=== PATIENT | male | born 1950 | race Caucasian/White ===

== ENCOUNTER 2016-10-24 10:42 | Day surgery (SDC) | payer MEDICARE, BC ==
[2016-10-19 09:27] VITALS: BMI 28.0
--- NOTE | 2016-10-23 15:02 | P.GSHP ---
History of Present Illness H&P Date: 10/24/16 Chief Complaint: Personal history of colon cancer Patient is known to our service. 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 He is being scheduled today for follow-up colonoscopy. Last colonoscopy was in 2014 and that was normal at that time. Past Medical History Past Medical History: Coronary Artery Disease (CAD), Cancer, Hyperlipidemia, Hypertension Additional Past Medical History / Comment(s): HX OF COLON CANCER (JUL 2013), History of Any Multi-Drug Resistant Organisms: None Reported Past Surgical History: Appendectomy, Bowel Resection, Cholecystectomy, Heart Catheterization With Stent, Hernia Repair Additional Past Surgical History / Comment(s): INGUINAL HERNIA REPAIR , CYST ON BACK REMOVED, LAPAROSCOPIC SIGMOID RESECTION, HEART CATH WITH STENT Past Anesthesia/Blood Transfusion Reactions: No Reported Reaction Date of Last Stent Placement:: SEP 2013 Past Psychological History: No Psychological Hx Reported Smoking Status: Former smoker Past Alcohol Use History: Occasional Additional Past Alcohol Use History / Comment(s): STARTED SMOKING AT AGE 18 QUIT 1985 SMOKED 1 1/2 PPD Past Drug Use History: Marijuana - Past Family History Mother Family Medical History: No Reported History Medications and Allergies Home Medications Medication Instructions Recorded Confirmed Type Aspirin EC [Ecotrin] 162 mg PO DAILY 10/18/14 10/19/16 History Lisinopril [Zestril] 20 mg PO DAILY 10/18/14 10/19/16 History Metoprolol Succinate (ER) [Toprol 25 mg PO BID 10/18/14 10/19/16 History Xl] Multivitamins, Thera [Multivitamin] 1 each PO DAILY 10/18/14 10/19/16 History Pravastatin Sodium [Pravachol] 40 mg PO HS 10/18/14 10/19/16 History Allergies Allergy/AdvReac Type Severity Reaction Status Date / Time No Known Allergies Allergy Verified 10/19/16 09:08 Surgical - Exam Deferred Assessment and Plan (1) Colon cancer Narrative/Plan: Will proceed with colonoscopy tomorrow. Status: Acute
[~2016-10-24 10:42] MED LIST: LACTATED RINGERS 1,000 ML IV SCH; LIDOCAINE 1% 20 ML VIAL (10MG/ML) FOR IV START INTRADERMA PRN
[2016-10-24 12:21] VITALS: TEMP 98.7
--- NOTE | 2016-10-24 13:25 | P.HPADDEND ---
H&P Addendum H&P Addendum Date: 10/24/16 Physical exam: General: Well-developed, well-nourished HEENT: Normocephalic, sclerae nonicteric Abdomen: Nontender, nondistended Extremities: No edema Neuro: Alert and oriented No additional changes to the H&P.
[2016-10-24] MEDS ORDERED: PROPOFOL 10 MG/ML 20 ML VIAL IV ONE (13:29)
--- NOTE | 2016-10-24 13:46 | P.PCN ---
Date of Procedure: 10/24/16 Procedure(s) Performed: PREOPERATIVE DIAGNOSIS: History of colon cancer POSTOPERATIVE DIAGNOSIS: Normal exam post-sigmoid colectomy PROCEDURE: Colonoscopy ANESTHESIA: MAC SURGEON: Delfin Rome M.D. SPECIMENS: None ENDOSCOPIC PROCEDURE: The patient was placed on the endoscopy table in the left decubitus position. The Olympus colonoscope was inserted into the anus and passed under direct visualization to the base of the cecum. The appendiceal orifice was visualized. From that point the scope was slowly withdrawn inspecting all surfaces carefully. There were no neoplastic inflammatory or polypoid lesions throughout the cecum, ascending, transverse, descending, and rectum. The anastomosis was widely patent. There was no visible diverticulosis present. Digital rectal examination was normal. The patient was taken to the recovery room in stable condition per anesthesia guidelines. RECOMMENDATIONS: Increase fiber. Follow colonoscopy in 5 years.
[2016-10-24 14:01] VITALS: RESP 16
[2016-10-24 14:09] VITALS: BP 157/90; PULSE 63
== END 2016-10-24 14:20 | disposition home or self-care (01) ==
LOC: ORWHC2ENDO 10:42
PROVIDERS: ATTEND Surgery
DX: Z12.11 Encounter for screening for malignant neoplasm of colon (principal); Z98.0 Intestinal bypass and anastomosis status; Z85.038 Personal history of other malignant neoplasm of large intestine; I25.10 Atherosclerotic heart disease of native coronary artery without angina pectoris; I10 Essential (primary) hypertension; Z87.891 Personal history of nicotine dependence; E78.5 Hyperlipidemia, unspecified; Z79.82 Long term (current) use of aspirin; Z79.899 Other long term (current) drug therapy
CPT/HCPCS: J2704; G0105

== ENCOUNTER 2020-03-22 08:00 | Day surgery (SDC) | payer BC, MEDICARE ==
[2020-03-18 15:57] VITALS: BMI 29.6
[~2020-03-22 08:00] MED LIST changes: -LIDOCAINE 1% 20 ML VIAL (10MG/ML) FOR IV START INTRADERMA PRN
[2020-03-22] MEDS ORDERED: LIDOCAINE 1% (10MG/ML) FOR IV START INTRADERMA ONE (08:25)
[2020-03-22 08:31] VITALS: TEMP 96.8
[2020-03-22] MEDS ORDERED: PROPOFOL 10 MG/ML 20 ML VIAL IV ONE (08:46)
--- NOTE | 2020-03-22 08:52 | P.GSHP ---
History of Present Illness H&P Date: 03/22/20 Chief Complaint: Abdominal pain, change in bowel habits Patient here today for upper and lower endoscopy. Patient was having right upper quadrant pain which has improved. Patient is also having some constipation which is better lately. Patient with history of sigmoid colon cancer 2012. Last colonoscopy 3-4 years ago. Past Medical History Past Medical History: Coronary Artery Disease (CAD), Cancer, Hyperlipidemia, Hypertension Additional Past Medical History / Comment(s): HX OF COLON CANCER (JUL 2013-no radiation or chemo) History of Any Multi-Drug Resistant Organisms: None Reported Past Surgical History: Appendectomy, Bowel Resection, Cholecystectomy, Heart Catheterization With Stent, Hernia Repair Additional Past Surgical History / Comment(s): INGUINAL HERNIA REPAIR , CYST ON BACK REMOVED, LAPAROSCOPIC SIGMOID RESECTION, HEART CATH WITH STENT x2 Past Anesthesia/Blood Transfusion Reactions: No Reported Reaction Date of Last Stent Placement:: 2013 Past Psychological History: No Psychological Hx Reported Smoking Status: Former smoker Past Alcohol Use History: Occasional Additional Past Alcohol Use History / Comment(s): STARTED SMOKING AT AGE 18 QUIT 1985 SMOKED 1 1/2 PPD Past Drug Use History: Marijuana Additional Drug Use History / Comment(s): uses marijuana approx 2 times per week - Past Family History Mother Family Medical History: No Reported History Medications and Allergies Home Medications Medication Instructions Recorded Confirmed Type Aspirin EC [Ecotrin] 162 mg PO DAILY 10/18/14 03/18/20 History Lisinopril [Zestril] 30 mg PO QAM 10/18/14 03/18/20 History Metoprolol Succinate (ER) [Toprol 50 mg PO BID 10/18/14 03/18/20 History Xl] Multivitamins, Thera [Multivitamin] 1 each PO DAILY 10/18/14 03/18/20 History Atorvastatin [Lipitor] 40 mg PO HS 03/18/20 03/18/20 History Famotidine [Pepcid] 20 mg PO HS 03/18/20 03/18/20 History Magnesium 250 mg PO DAILY 03/18/20 03/18/20 History [place]klin-3 Fatty Acids/Fish Oil [Fish 1 each PO DAILY 03/18/20 03/18/20 History Oil 1,000 mg Softgel] amLODIPine [Norvasc] 10 mg PO HS 03/18/20 03/18/20 History Allergies Allergy/AdvReac Type Severity Reaction Status Date / Time No Known Allergies Allergy Verified 03/18/20 15:50 Surgical - Exam Vital Signs Temp Pulse Resp BP Pulse Ox 96.8 F L 70 20 167/73 99 03/22/20 08:27 03/22/20 08:27 03/22/20 08:27 03/22/20 08:27 03/22/20 08:27 Physical exam: General: Well-developed, well-nourished HEENT: Normocephalic, sclerae nonicteric Abdomen: Nontender, nondistended Extremities: No edema Neuro: Alert and oriented Assessment and Plan (1) Colon cancer Narrative/Plan: Will proceed with upper and lower endoscopy Current Visit: No Status: Acute Code(s): C18.9 - MALIGNANT NEOPLASM OF COLON, UNSPECIFIED SNOMED Code(s): 738013766
--- NOTE | 2020-03-22 09:11 | P.PCN ---
Date of Procedure: 03/22/20 Procedure(s) Performed: PREOPERATIVE DIAGNOSIS: Epigastric abdominal pain, change in bowel habits, personal history of colon cancer POSTOPERATIVE DIAGNOSIS: Gastritis, moderate hiatal hernia, normal colon PROCEDURE: 1. EGD with biopsy 2. Colonoscopy ANESTHESIA: MAC SURGEON: Delfin Rome M.D. SPECIMENS: Antrum ENDOSCOPIC PROCEDURE: The patient was on the endoscopy table in the left decubitus position. The Olympus gastroscope was inserted into the oropharynx and passed under direct visualization to the region of the third portion of the duodenum. From that point the scope was slowly withdrawn inspecting all surfaces carefully. There were no neoplastic inflammatory or polypoid lesions throughout the duodenum. The pylorus was widely patent. The stomach was carefully inspected. There was mild gastritis present. A biopsy of the antrum took place to rule out H. pylori. Retroflexion revealed a moderate sized hiatal hernia. The GE junction was 3-4 cm above the diaphragm. The esophagus was then carefully examined. There were no neoplastic inflammatory or polypoid lesions throughout the visualized esophagus. The patient was kept on the endoscopy table in the left decubitus position. The Olympus colonoscope was inserted into the anus and passed under direct visualization to the base of the cecum. The appendiceal orifice was visualized. From that point the scope was slowly withdrawn inspecting all surfaces carefully. There were no neoplastic inflammatory or polypoid lesions throughout the cecum, ascending, transverse, descending and rectum. There was no visible diverticulosis noted. Digital rectal examination was normal. The patient was taken to the recovery room in stable condition per anesthesia guidelines. RECOMMENDATIONS: Continue as needed antiacid therapy. Follow-up colonoscopy 5 years.
[2020-03-22 09:14] VITALS: RESP 16
[2020-03-22 09:26] VITALS: BP 134/82; PULSE 60
== END 2020-03-22 09:42 ==
LOC: ORWHC2ENDO 08:00
PROVIDERS: ATTEND Surgery
DX: K29.50 Unspecified chronic gastritis without bleeding (principal); K44.9 Diaphragmatic hernia without obstruction or gangrene; I25.10 Atherosclerotic heart disease of native coronary artery without angina pectoris; E78.5 Hyperlipidemia, unspecified; K59.00 Constipation, unspecified; I10 Essential (primary) hypertension; Z85.038 Personal history of other malignant neoplasm of large intestine; Z87.19 Personal history of other diseases of the digestive system; Z90.49 Acquired absence of other specified parts of digestive tract; Z95.5 Presence of coronary angioplasty implant and graft; Z87.891 Personal history of nicotine dependence; Z79.82 Long term (current) use of aspirin; Z79.899 Other long term (current) drug therapy
CPT/HCPCS: 88305; 43239; 45378; J2704

== ENCOUNTER 2024-12-22 09:58 | Day surgery (SDC) | payer MEDICARE ==
[~2024-12-22 09:58] MED LIST changes: -LACTATED RINGERS 1,000 ML IV SCH; +LIDOCAINE 1% (10MG/ML) FOR IV START INTRADERMA PRN
[2024-12-22] MEDS: IV FLUID CONTINUATION 1,000 ML IV ONE (10:40)
[2024-12-22] MEDS: LACTATED RINGERS 1,000 ML IV SCH (10:55)
[2024-12-22 10:59] VITALS: TEMP 97.3
[2024-12-22] MEDS ORDERED: PROPOFOL 10 MG/ML 20 ML VIAL IV ONE (12:04)
--- NOTE | 2024-12-22 12:07 | P.GSHP ---
History of Present Illness H&P Date: 12/22/24 Chief Complaint: Screening with history of cancer 74-year-old male here for colonoscopy. Last colonoscopy 5 years ago. No bowel complaints. Underwent sigmoid resection 2012. Past Medical History Past Medical History: Coronary Artery Disease (CAD), Cancer, GERD/Reflux, Hyperlipidemia, Hypertension, Sleep Apnea/CPAP/BIPAP Additional Past Medical History / Comment(s): HX OF COLON CANCER (JUL 2013-no radiation or chemo), hx skin ca, uses CPAP. History of Any Multi-Drug Resistant Organisms: None Reported Past Surgical History: Appendectomy, Bowel Resection, Cholecystectomy, Heart Catheterization With Stent, Hernia Repair Additional Past Surgical History / Comment(s): INGUINAL HERNIA REPAIR, CYST ON BACK REMOVED, LAPAROSCOPIC SIGMOID RESECTION, HEART CATH WITH STENT x2 Past Anesthesia/Blood Transfusion Reactions: No Reported Reaction Date of Last Stent Placement:: 2013 Smoking Status: Former smoker - Past Family History Mother Family Medical History: No Reported History Medications and Allergies Home Medications Medication Instructions Recorded Confirmed Type Aspirin EC [Ecotrin] 162 mg PO DAILY 10/18/14 12/22/24 History Metoprolol Succinate (ER) [Toprol 50 mg PO BID 10/18/14 12/22/24 History Xl] Multivitamins, Thera [Multivitamin] 1 each PO DAILY 10/18/14 12/22/24 History lisinopriL [Zestril] 40 mg PO QAM 10/18/14 12/22/24 History Atorvastatin [Lipitor] 40 mg PO HS 03/18/20 12/22/24 History Famotidine [Pepcid] 20 mg PO HS 03/18/20 12/22/24 History Magnesium 250 mg PO DAILY 03/18/20 12/22/24 History [place]iqu[place]-3 Fatty Acids/Fish Oil [Fish 1 each PO HS 03/18/20 12/22/24 History Oil 1,000 mg Softgel] amLODIPine [Norvasc] 5 mg PO HS 03/18/20 12/22/24 History Glucosamine Sulfate 1,000 mg PO BID 12/18/24 12/22/24 History Allergies Allergy/AdvReac Type Severity Reaction Status Date / Time No Known Allergies Allergy Verified 12/22/24 10:42 Surgical - Exam Vital Signs Temp Pulse Resp BP Pulse Ox 97.3 F L 66 16 147/80 99 12/22/24 10:58 12/22/24 10:58 12/22/24 10:58 12/22/24 10:58 12/22/24 10:58 Physical exam: General: Well-developed, well-nourished HEENT: Normocephalic, sclerae nonicteric Abdomen: Nontender, nondistended Extremities: No edema Neuro: Alert and oriented Assessment and Plan (1) Colon cancer screening Narrative/Plan: Will proceed with colonoscopy at this time. Current Visit: Yes Status: Acute Code(s): Z12.11 - ENCOUNTER FOR SCREENING FOR MALIGNANT NEOPLASM OF COLON SNOMED Code(s): 385706019
--- NOTE | 2024-12-22 12:18 | P.PCN ---
Date of Procedure: 12/22/24 Procedure(s) Performed: PREOPERATIVE DIAGNOSIS: History of colon cancer with screening POSTOPERATIVE DIAGNOSIS: Normal exam PROCEDURE: Colonoscopy ANESTHESIA: MAC SURGEON: Delfin Rome M.D. SPECIMENS: None ENDOSCOPIC PROCEDURE: The patient was placed on the endoscopy table in the left decubitus position. The Olympus colonoscope was inserted into the anus and passed under direct visualization to the base of the cecum. The appendiceal orifice was visualized. From that point the scope was slowly withdrawn inspecting all surfaces carefully. There were no neoplastic inflammatory or polypoid lesions throughout the cecum, ascending, transverse, descending and rectum. There was no visible diverticulosis noted. Digital rectal examination was normal. The patient was taken to the recovery room in stable condition per anesthesia guidelines. RECOMMENDATIONS: Resume diet. Repeat colonoscopy 5 years.
[2024-12-22 12:29] VITALS: RESP 14
[2024-12-22 12:43] VITALS: BP 131/80; PULSE 56
== END 2024-12-22 12:56 | disposition home or self-care (01) ==
LOC: ORWHC2ENDO 09:58
PROVIDERS: ATTEND Surgery
DX: Z12.11 Encounter for screening for malignant neoplasm of colon (principal); I10 Essential (primary) hypertension; I25.10 Atherosclerotic heart disease of native coronary artery without angina pectoris; Z95.5 Presence of coronary angioplasty implant and graft; E78.5 Hyperlipidemia, unspecified; G47.33 Obstructive sleep apnea (adult) (pediatric); K21.9 Gastro-esophageal reflux disease without esophagitis; Z79.82 Long term (current) use of aspirin; Z79.899 Other long term (current) drug therapy; Z87.891 Personal history of nicotine dependence; Z85.038 Personal history of other malignant neoplasm of large intestine; Z90.49 Acquired absence of other specified parts of digestive tract
CPT/HCPCS: G0105; J2704